=== PATIENT | female | born 1985 | race African-American/Black ===

== ENCOUNTER 2020-10-29 11:27 | Emergency (ER) | payer MEDICAID ==
[~2020-10-29] VITALS: Ht 157.5 cm; Wt 83.0 kg
[2020-10-29 12:27] LABS: BASOPHILS % 0.6 % (0.0-2.0); EOSINOPHILS % 5.2 % (0.0-5.0); HEMATOCRIT. 37.5 % (36.0-48.0); HEMOGLOBIN. 11.7 g/dL (12.0-16.0); LYMPHOCYTES % 25.4 % (20.0-50.0); MEAN CORPUSCULAR HEMOGLOBIN 22.9 pg (28.0-32.0); MEAN CORPUSCULAR VOLUME 73.5 fL (81.0-99.0); MEAN PLATELET VOLUME 8.3 fl (7.4-10.4); MONOCYTES % 7.7 % (2.0-8.0); NEUTROPHILS % 61.1 % (40.0-76.0); PLATELET 260 x1000/uL (130-400); RED CELL DISTRIBUTION WIDTH 15.3 % (11.6-14.6)
[2020-10-29 12:33] LABS: CHLORIDE 114 mEq/L (98-107)
[2020-10-29 12:36] LABS: HCG SCREEN NEGATIVE
[2020-10-29 12:46] LABS: CLARITY URINE TURBID (CLEAR); COLOR URINE DARK YELLOW (YELLOW); KETONES URINE TRACE (NEGATIVE); LEUKOCYTE ESTERASE URINE 1+ (NEGATIVE); NITRITE URINE NEGATIVE (NEGATIVE); OCCULT BLOOD URINE NEGATIVE (NEGATIVE); PROTEIN URINE TRACE (NEGATIVE); SPECIFIC GRAVITY URINE 1.033 (1.005-1.030)
[2020-10-29] MEDS ORDERED: ACETAMINOPHEN 325MG TABLET PO ONE (13:00)
[2020-10-29] MEDS ORDERED: IBUPROFEN 400MG TABLET PO ONE (14:30)
[2020-10-29] MEDS ORDERED: TOPUD MT (17:14)
[2020-10-29] MEDS ORDERED: IBUP-2028 MT (17:14)
[2020-10-29 18:15] VITALS: BP 120/77
== END 2020-10-29 18:17 | disposition home or self-care (01) ==
LOC: ER 11:27
DX: D27.9 Benign neoplasm of unspecified ovary (principal); N20.0 Calculus of kidney; E11.9 Type 2 diabetes mellitus without complications
CPT/HCPCS: 36415; 74176; 76830; 76856; 80048; 80076; 81003; 81025; 84703; 85025; 93005; 99285